=== PATIENT | male | born 1995 | race Caucasian/White ===

== ENCOUNTER 2019-12-10 12:42 | Emergency (ER) | payer SELFPAY ==
[~2019-12-10] VITALS: Ht 185 cm; Wt 106.0 kg
[2019-12-10] MEDS ORDERED: fentaNYL INJECTION 100 MCG/2 ML AMP IVP PRN (13:00)
[2019-12-10] MEDS ORDERED: diphenhydrAMINE 50 MG/ML INJ (BENADRYL) IVP ONE (13:00)
[2019-12-10] MEDS ORDERED: NS IV 1000 ML 1,000 ML IV SCH (13:00)
--- NOTE | 2019-12-10 13:13 | ED Abdominal Pain ---
General Stated Complaint: LOWER ABD PAIN Source of Information: Patient Exam Limitations: No Limitations (MAUREEN TALLEY MED STUDENT) History of Present Illness Date Seen by Provider: Dec 10, 2019 Time Seen by Provider: 12:50 Initial Comments Mr. Dietrich is a 24 year old male who presents to the emergency department this morning with complaints of epigastric abdominal pain and vomiting. He was seen at a walk-in clinic and instructed to go to the ED. Jasson states he had an alcohol binge 2 days ago consisting of mostly liquor. He states he woke up the next morning with severe abdominal pain and nausea/vomiting. He states he improved and was able to sleep and eat/drink that evening. However, this morning the symptoms returned. Jasson describes the pain as a dull 3/10 at rest but with inhaling/vomiting it is a sharp 7/10 on the pain scale. He tried naproxen for the pain with no relief. He continues to have nausea. The pain is epigastric in location with no radiation. He denies recent sick contacts, diarrhea, chest pain, or fever. He admits to regular but not daily alcohol use. He also uses THC daily via a "dab pen", he has used THC for several years Timing/Duration: 1-2 Days Severity/Quality: Moderate Location: RUQ, Epigastric Radiation: No Radiation Modifying Factors: Worsens With Breathing, Worsens With Defecating, Worsens With Vomiting (MAUREEN TALLEY,LAKIA STUDENT) Allergies and Home Medications Allergies Coded Allergies: ziprasidone (Verified Allergy, Unknown, 12/10/19) Home Medications Prochlorperazine Maleate 10 Mg Tablet, 10 MG PO TID PRN for NAUSEA/VOMITING Prescribed by: JET BOLDEN on 12/10/19 1410 Patient Home Medication List Home Medication List Reviewed: Yes (MAUREEN TALLEY,LAKIA STUDENT) Review of Systems Review of Systems Constitutional: chills; No dizziness, No fever EENTM: No Symptoms Reported Respiratory: Shortness of Air (with pain) Cardiovascular: No Symptoms Reported Gastrointestinal: Abdominal Pain; Denies Diarrhea; Nausea, Vomiting Genitourinary: No Symptoms Reported Skin: no symptoms reported (MAUREEN TALLEY,LAKIA STUDENT) Physical Exam Vital Signs Vital Signs - First Documented 12/10/19 12:46 Temp 37.1 Pulse 66 Resp 20 B/P (MAP) 143/95 (111) Pulse Ox 99 O2 Delivery Room Air (JET BOLDEN APRN) Vital Signs Capillary Refill : (MAUREEN TALLEY,MED STUDENT) Height/Weight/BMI Height: '" Weight: lbs. oz. kg; BMI Method: General Appearance: WD/WN, mild distress HEENT: PERRL/EOMI Respiratory: chest non-tender, lungs clear, normal breath sounds, no respira tory distress, no accessory muscle use Cardiovascular: regular rate, rhythm, no murmur Peripheral Pulses: 2+ Radial Pulses (R), 2+ Radial Pulses (L) Gastrointestinal: normal bowel sounds, soft, no organomegaly; No guarding, No rebound; tenderness (epigastric and RUQ) Neurologic/Psychiatric: alert, normal mood/affect, oriented x 3 Skin: normal color, warm/dry (MAUREEN TALLEY,MED STUDENT) Progress/Results/Core Measures Results/Orders Lab Results Laboratory Tests Test 12/10/19 12:48 Range/Units White Blood Count 11.6 H 4.3-11.0 10^3/uL Red Blood Count 5.41 4.35-5.85 10^6/uL Hemoglobin 16.7 13.3-17.7 G/DL Hematocrit 49 40-54 % Mean Corpuscular Volume 91 80-99 FL Mean Corpuscular Hemoglobin 31 25-34 PG Mean Corpuscular Hemoglobin Concent 34 32-36 G/DL Red Cell Distribution Width 13.0 10.0-14.5 % Platelet Count 213 130-400 10^3/uL Mean Platelet Volume 10.5 H 7.4-10.4 FL Neutrophils (%) (Auto) 81 H 42-75 % Lymphocytes (%) (Auto) 10 L 12-44 % Monocytes (%) (Auto) 7 0-12 % Eosinophils (%) (Auto) 2 0-10 % Basophils (%) (Auto) 0 0-10 % Neutrophils # (Auto) 9.4 H 1.8-7.8 X 10^3 Lymphocytes # (Auto) 1.2 1.0-4.0 X 10^3 Monocytes # (Auto) 0.8 0.0-1.0 X 10^3 Eosinophils # (Auto) 0.2 0.0-0.3 10^3/uL Basophils # (Auto) 0.0 0.0-0.1 10^3/uL Prothrombin Time 12.4 12.2-14.7 SEC INR Comment 0.9 0.8-1.4 Sodium Level 141 135-145 MMOL/L Potassium Level 3.8 3.6-5.0 MMOL/L Chloride Level 105 98-107 MMOL/L Carbon Dioxide Level 26 21-32 MMOL/L Anion Gap 10 5-14 MMOL/L Blood Urea Nitrogen 17 7-18 MG/DL Creatinine 0.84 0.60-1.30 MG/DL Estimat Glomerular Filtration Rate > 60 BUN/Creatinine Ratio 20 Glucose Level 105 70-105 MG/DL Calcium Level 9.5 8.5-10.1 MG/DL Corrected Calcium 9.2 8.5-10.1 MG/DL Total Bilirubin 1.3 H 0.1-1.0 MG/DL Aspartate Amino Transf (AST/SGOT) 24 5-34 U/L Alanine Aminotransferase (ALT/SGPT) 32 0-55 U/L Alkaline Phosphatase 31 L 40-136 U/L Total Protein 7.7 6.4-8.2 GM/DL Albumin 4.4 3.2-4.5 GM/DL Lipase 20 8-78 U/L (JET BOLDEN APRN) My Orders Orders - JET BOLDEN APRN Ekg Tracing (12/10/19 12:54) Comprehensive Metabolic Panel (12/10/19 12:54) Lipase (12/10/19 12:54) Protime With Inr (12/10/19 12:54) Ed Iv/Invasive Line Start (12/10/19 12:54) Diphenhydramine Injection (Benadryl Inje (12/10/19 13:00) Fentanyl Injection (Sublimaze Injection (12/10/19 13:00) Ns Iv 1000 Ml (Sodium Chloride 0.9%) (12/10/19 13:00) Cbc With Automated Diff (12/10/19 13:15) Haloperidol Injection (Haldol Injectio (12/10/19 13:45) Us Gallbladder 809[address] (12/10/19 14:10) Ondansetron Injection (Zofran Injectio (12/10/19 15:00) (JET BOLDEN APRN) Vital Signs/I&O 12/10/19 12/10/19 12:46 15:01 Temp 37.1 Pulse 66 75 Resp 20 16 B/P (MAP) 143/95 (111) 141/99 Pulse Ox 99 98 O2 Delivery Room Air Room Air (JET BOLDEN APRN) Departure Impression Primary Impression: Nausea and vomiting Qualified Codes: R11.2 - Nausea with vomiting, unspecified Disposition: HOME, SELF-CARE Condition: Improved Departure-Patient Inst. Scripts Prochlorperazine Maleate (Compazine) 10 Mg Tablet 10 MG PO TID PRN for NAUSEA/VOMITING, #14 TAB Prov: JET BOLDEN APRN 12/10/19 MAUREEN TALLEY,MED STUDENT Dec 10, 2019 13:13 JET BOLDEN APRN Dec 14, 2019 11:10
--- NOTE | 2019-12-10 13:15 | ED General ---
General Stated Complaint: LOWER ABD PAIN Source of Information: Patient Exam Limitations: No Limitations History of Present Illness Date Seen by Provider: Dec 10, 2019 Time Seen by Provider: 12:55 Initial Comments To ER with epigastric abdominal pain as well as nausea and vomiting for 2-3 days. This began after drinking a lot of alcohol the night before 3 days ago. He presented to [facility] walk-in clinic and was advised he might have pancreatitis. He decided to come to the emergency room. He does smoke dabs of marijuana (concentrated THC in wax paste) daily. Timing/Duration: 1-2 Days Severity: Moderate Associated Systoms: Nausea/Vomiting Allergies and Home Medications Allergies Coded Allergies: ziprasidone (Verified Allergy, Unknown, 12/10/19) Patient Home Medication List Home Medication List Reviewed: Yes Review of Systems Review of Systems Constitutional: see HPI EENTM: see HPI Respiratory: no symptoms reported Cardiovascular: no symptoms reported Genitourinary: no symptoms reported Musculoskeletal: no symptoms reported Skin: no symptoms reported Psychiatric/Neurological: No Symptoms Reported Hematologic/Lymphatic: No Symptoms Reported Immunological/Allergic: no symptoms reported Physical Exam Vital Signs Vital Signs - First Documented 12/10/19 12:46 Temp 37.1 Pulse 66 Resp 20 B/P (MAP) 143/95 (111) Pulse Ox 99 O2 Delivery Room Air Capillary Refill : Height, Weight, BMI Height: '" Weight: lbs. oz. kg; BMI Method: General Appearance: Other (diaphoretic) Eyes: Bilateral Eye Normal Inspection, Bilateral Eye PERRL Neck: Full Range of Motion, Normal Inspection Respiratory: No Accessory Muscle Use, No Respiratory Distress Cardiovascular: Regular Rate, Rhythm, Normal Peripheral Pulses Gastrointestinal: Normal Bowel Sounds, Soft, Tenderness Extremity: Normal Capillary Refill, Normal Inspection Neurologic/Psychiatric: Alert, Oriented x3 Skin: Normal Color, Warm/Dry Progress/Results/Core Measures Suspected Sepsis SIRS Temperature: Pulse: Respiratory Rate: Laboratory Tests 12/10/19 12:48: White Blood Count 11.6H Blood Pressure / Mean: Laboratory Tests 12/10/19 12:48: Creatinine 0.84, INR Comment 0.9, Platelet Count 213, Total Bilirubin 1.3H Results/Orders Lab Results Laboratory Tests Test 12/10/19 12:48 Range/Units White Blood Count 11.6 H 4.3-11.0 10^3/uL Red Blood Count 5.41 4.35-5.85 10^6/uL Hemoglobin 16.7 13.3-17.7 G/DL Hematocrit 49 40-54 % Mean Corpuscular Volume 91 80-99 FL Mean Corpuscular Hemoglobin 31 25-34 PG Mean Corpuscular Hemoglobin Concent 34 32-36 G/DL Red Cell Distribution Width 13.0 10.0-14.5 % Platelet Count 213 130-400 10^3/uL Mean Platelet Volume 10.5 H 7.4-10.4 FL Neutrophils (%) (Auto) 81 H 42-75 % Lymphocytes (%) (Auto) 10 L 12-44 % Monocytes (%) (Auto) 7 0-12 % Eosinophils (%) (Auto) 2 0-10 % Basophils (%) (Auto) 0 0-10 % Neutrophils # (Auto) 9.4 H 1.8-7.8 X 10^3 Lymphocytes # (Auto) 1.2 1.0-4.0 X 10^3 Monocytes # (Auto) 0.8 0.0-1.0 X 10^3 Eosinophils # (Auto) 0.2 0.0-0.3 10^3/uL Basophils # (Auto) 0.0 0.0-0.1 10^3/uL Prothrombin Time 12.4 12.2-14.7 SEC INR Comment 0.9 0.8-1.4 Sodium Level 141 135-145 MMOL/L Potassium Level 3.8 3.6-5.0 MMOL/L Chloride Level 105 98-107 MMOL/L Carbon Dioxide Level 26 21-32 MMOL/L Anion Gap 10 5-14 MMOL/L Blood Urea Nitrogen 17 7-18 MG/DL Creatinine 0.84 0.60-1.30 MG/DL Estimat Glomerular Filtration Rate > 60 BUN/Creatinine Ratio 20 Glucose Level 105 70-105 MG/DL Calcium Level 9.5 8.5-10.1 MG/DL Corrected Calcium 9.2 8.5-10.1 MG/DL Total Bilirubin 1.3 H 0.1-1.0 MG/DL Aspartate Amino Transf (AST/SGOT) 24 5-34 U/L Alanine Aminotransferase (ALT/SGPT) 32 0-55 U/L Alkaline Phosphatase 31 L 40-136 U/L Total Protein 7.7 6.4-8.2 GM/DL Albumin 4.4 3.2-4.5 GM/DL Lipase 20 8-78 U/L My Orders Orders - BOLDENJET APRN Ekg Tracing (12/10/19 12:54) Comprehensive Metabolic Panel (12/10/19 12:54) Lipase (12/10/19 12:54) Ua Culture If Indicated (12/10/19 12:54) Drug Screen Stat (Urine) (12/10/19 12:54) Protime With Inr (12/10/19 12:54) Ed Iv/Invasive Line Start (12/10/19 12:54) Diphenhydramine Injection (Benadryl Inje (12/10/19 13:00) Fentanyl Injection (Sublimaze Injection (12/10/19 13:00) Ns Iv 1000 Ml (Sodium Chloride 0.9%) (12/10/19 13:00) Cbc With Automated Diff (12/10/19 13:15) Haloperidol Injection (Haldol Injectio (12/10/19 13:45) Medications Given in ED Current Medications Medications Dose Ordered Sig/Saritha Route Start Time Stop Time Status Last Admin Dose Admin Diphenhydramine HCl 25 mg ONCE ONCE IVP 12/10/19 13:00 12/10/19 13:01 DC 12/10/19 13:03 25 MG Fentanyl Citrate 50 mcg ONCE PRN IVP 12/10/19 13:00 12/10/19 13:03 50 MCG Haloperidol Lactate 5 mg ONCE ONCE IV 12/10/19 13:45 12/10/19 13:46 DC 12/10/19 13:40 5 MG Vital Signs/I&O 12/10/19 12:46 Temp 37.1 Pulse 66 Resp 20 B/P (MAP) 143/95 (111) Pulse Ox 99 O2 Delivery Room Air Capillary Refill : Departure Impression Primary Impression: Epigastric abdominal pain Additional Impressions: Nausea and vomiting Cannabinoid hyperemesis syndrome Disposition: 01 HOME, SELF-CARE Condition: Improved Departure-Patient Inst. Decision time for Depature: 14:07 Patient Instructions: No Instuctions Given Add. Discharge Instructions: Your labs are unremarkable, it is certainly possible that the marijuana is contributing to this abdominal pain and nausea and vomiting. Unfortunately, if that is the case it tends to be a recurrent problem with repeated emergency room visits for abdominal pain nausea and vomiting. The treatment for this is to cease marijuana use, hot showers with the water hitting your abdomen can also be helpful. Take the nausea medication as directed. Follow-up with your doctor this week for further evaluation and recheck. Scripts Prochlorperazine Maleate (Compazine) 10 Mg Tablet 10 MG PO TID PRN for NAUSEA/VOMITING, #14 TAB Prov: JET BOLDEN APRN 12/10/19 JET BOLDEN APRN Dec 10, 2019 13:14
[2019-12-10 13:21] LABS: INR 0.9 (0.8-1.4); PROTHROMBIN TIME PATIENT 12.4 SEC (12.2-14.7)
[2019-12-10 13:22] LABS: BASOPHILS % (AUTO) 0 % (0-10); EOSINOPHILS # (AUTO) 0.2 10^3/uL (0.0-0.3); EOSINOPHILS % (AUTO) 2 % (0-10); HEMATOCRIT 49 % (40-54); HEMOGLOBIN 16.7 G/DL (13.3-17.7); LYMPHOCYTES # (AUTO) 1.2 X 10^3 (1.0-4.0); LYMPHOCYTES % (AUTO) 10 % (12-44); MEAN CORPUSCULAR HEMOGLOBIN 31 PG (25-34); MEAN CORPUSCULAR HGB CONC 34 G/DL (32-36); MEAN CORPUSCULAR VOLUME 91 FL (80-99); MEAN PLATELET VOLUME 10.5 FL (7.4-10.4); MONOCYTES # (AUTO) 0.8 X 10^3 (0.0-1.0); MONOCYTES % (AUTO) 7 % (0-12); NEUTROPHILS # (AUTO) 9.4 X 10^3 (1.8-7.8); NEUTROPHILS % (AUTO) 81 % (42-75); PLATELET COUNT 213 10^3/uL (130-400); WHITE BLOOD COUNT 11.6 10^3/uL (4.3-11.0)
[2019-12-10 13:24] LABS: ALBUMIN 4.4 GM/DL (3.2-4.5)
[2019-12-10 13:25] LABS: CHLORIDE 105 MMOL/L (98-107); POTASSIUM 3.8 MMOL/L (3.6-5.0); SODIUM 141 MMOL/L (135-145)
[2019-12-10 13:26] LABS: CALCIUM 9.5 MG/DL (8.5-10.1)
[2019-12-10 13:27] LABS: GLUCOSE 105 MG/DL (70-105); TOTAL PROTEIN 7.7 GM/DL (6.4-8.2)
[2019-12-10 13:28] LABS: CARBON DIOXIDE 26 MMOL/L (21-32)
[2019-12-10 13:29] LABS: BILIRUBIN,TOTAL 1.3 MG/DL (0.1-1.0)
[2019-12-10 13:30] LABS: ALKALINE PHOSPHATASE 31 U/L (40-136)
[2019-12-10 13:31] LABS: CREATININE SERUM 0.84 MG/DL (0.60-1.30); GFR ESTIMATED > 60
[2019-12-10 13:32] LABS: BUN/CREATININE RATIO 20
[2019-12-10 13:33] LABS: ALANINE AMINOTRANSFERASE 32 U/L (0-55)
[2019-12-10 13:34] LABS: LIPASE 20 U/L (8-78)
[2019-12-10] MEDS ORDERED: HALOPERIDOL 5 MG/ML (HALDOL) VIAL IV ONE (13:45)
--- NOTE | 2019-12-10 13:54 | NUR ---
Patient sleeping. No signs of distress present.
[2019-12-10] MEDS ORDERED: PROC-1 PO (14:10)
--- OUTSIDE RECORDS SUMMARY | 2019-12-10 14:47 | XMS REPORT | Continuity of Care Document ---
Demographics Preferred Language Unknown Marital Status Unknown Tenriism Affiliation Unknown Race Unknown Ethnic Group Unknown Author Organization Unknown Address Unknown Phone Unavailable Allergies There is no data. Medications There is no data. Problems There is no data. Procedures There is no data. Results Test Result Range Complete blood count (CBC) with automate d white blood cell (WBC) differential - 12/10/19 12:48 Blood leukocytes automated count (number/volume) 11.6 10*3/uL 4.3-11.0 Blood erythrocytes automated count (number/volume) 5.41 10*6/uL 4.35-5.85 Venous blood hemoglobin measurement (mass/volume) 16.7 g/dL 13.3-17.7 Blood hematocrit (volume fraction) 49 % 40-54 Automated erythrocyte mean corpuscular volume 91 [ foz_us] 80-99 Automated erythrocyte mean corpuscular h emoglobin (mass per erythrocyte) 31 pg 25-34 Automated erythrocyte mean corpuscular h emoglobin concentration measurement (mass/volume) 34 g/dL 32-36 Automated erythrocyte distribution width ratio 13. 0 % 10.0- 14.5 Automated blood platelet count (count/volume) 213 10*3/uL 130-400 Automated blood platelet mean volume measurement 10.5 [foz_us] 7.4-10.4 Automated blood neutrophils/100 leukocytes 81 % 42-75 Automated blood lymphocytes/100 leukocytes 10 % 12-44 Blood monocytes/100 leukocytes 7 % 0-12 Automated blood eosinophils/100 leukocytes 2 % 0-10 Automated blood basophils/100 leukocytes 0 % 0-10 Blood neutrophils automated count (number/volume) 9.4 10*3 1.8-7.8 Blood lymphocytes automated count (number/volume) 1.2 10*3 1.0-4.0 Blood monocytes automated count (number/volume) 0. 8 10*3 0.0-1.0 Automated eosinophil count 0.2 10*3/uL 0 .0-0.3 Automated blood basophil count (count/volume) 0.0 10*3/uL 0.0-0.1 PT panel in platelet poor plasma by coag ulation assay - 12/10/19 12:48 Prothrombin time (PT) in platelet poor plasma by coagu lation assay 12.4 s 12.2-14.7 INR in platelet poor plasma or blood by coagulation as say 0.9 0.8-1.4 Comprehensive metabolic panel - 12/10/19 12:48 Serum or plasma sodium measurement (moles/volume) 141 mmol/L 135-145 Serum or plasma potassium measurement (moles/volume) 3.8 mmol/L 3.6-5.0 Serum or plasma chloride measurement (moles/volume) 105 mmol/L 98-107 Carbon dioxide 26 mmol/L 21-32 Serum or plasma anion gap determination (moles/volume) 10 mmol/L 5-14 Serum or plasma urea nitrogen measurement (mass/volume ) 17 mg/dL 7-18 Serum or plasma creatinine measurement (mass/volume) 0.84 mg/dL 0.60-1.30 Serum or plasma urea nitrogen/creatinine mass ratio 20 NRG Serum or plasma creatinine measurement w ith calculation of estimated glomerular filtration rate > NRG Serum or plasma glucose measurement (mass/volume) 105 mg/dL 70-105 Serum or plasma calcium measurement (mass/volume) 9.5 mg/dL 8.5-10.1 Serum or plasma total bilirubin measurement (mass/volu me) 1.3 mg/dL 0.1-1.0 Serum or plasma alkaline phosphatase deyanira surement (enzymatic activity/volume) 31 U/L 40-136 Serum or plasma aspartate aminotransfera se measurement (enzymatic activity/volume) 24 U/L 5-34 Serum or plasma alanine aminotransferase measurement (enzymatic activity/volume) 32 U/L 0-55 Serum or plasma protein measurement (mass/volume) 7.7 g/dL 6.4-8.2 Serum or plasma albumin measurement (mass/volume) 4.4 g/dL 3.2-4.5 CALCIUM CORRECTED 9.2 mg/dL 8.5-10.1 Lipase - 12/10/19 12:48 Lipase 20 U/L 8-78 Encounters ACCT No. Visit Date/Time Discharge Status Pt. Type Provider Facility Loc./Unit Complaint [id number] 12/10/2019 13:22:00 Document Registration
--- NOTE | 2019-12-10 14:54 | Diagnostic Imaging Report ---
PROCEDURE: US Gallbladder. TECHNIQUE: Multiple real-time grayscale images were obtained over the right upper quadrant in various projections. INDICATION: Pain. FINDINGS: The gallbladder appears normal. No stone or sludge. Biliary ducts are nondilated. The visualized portions of the pancreas are normal. The aorta is nonaneurysmal. The cava is unremarkable. The unobstructed right kidney is normal in size, cortical thickness, and echotexture. No ascites. Portal vein is patent and shows a normal hepatopetal direction of flow. IMPRESSION: Normal right upper quadrant ultrasound. Dictated by: Dictated on workstation # [id number]
[2019-12-10] MEDS ORDERED: ONDANSETRON 4 MG/2 ML (SDV) Z0FRAN IVP ONE (15:00)
[2019-12-10 15:01] VITALS: BP 141/99
== END 2019-12-10 15:01 | disposition home or self-care (01) ==
LOC: ER 12:44
DX: R10.13 Epigastric pain (principal); R11.2 Nausea with vomiting, unspecified; F12.90 Cannabis use, unspecified, uncomplicated
CPT/HCPCS: 36415; 76705; 80053; 83690; 85025; 85610; 93005; 96361; 96374; 96375

== ENCOUNTER 2021-03-14 15:25 | Emergency (ER) | payer OTHER ==
[~2021-03-14] VITALS: Ht 180 cm; Wt 108.9 kg
[~2021-03-14 15:25] MED LIST: PROC-1 PO
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
[2021-03-14] MEDS ORDERED: LIDOCAINE 2% VISCOUS 15 ML UDC PO ONE (15:45)
[2021-03-14] MEDS ORDERED: DROPERIDOL 5 MG/2 ML (INAPSINE) ED ONLY! IV ONE (15:45)
[2021-03-14] MEDS ORDERED: ANTACID SUSP 30 ML UDC (MYLANTA) PO ONE (15:45)
[2021-03-14] MEDS ORDERED: LACTATED RINGERS 1,000 ML IV SCH (15:45)
[2021-03-14 16:00] LABS: BASOPHILS % (AUTO) 0 % (0-10); EOSINOPHILS % (AUTO) 1 % (0-10); HEMATOCRIT 49 % (40-54); HEMOGLOBIN 17.4 g/dL (13.3-17.7); LYMPHOCYTES # (AUTO) 1.1 10^3/uL (1.0-4.0); LYMPHOCYTES % (AUTO) 17 % (12-44); MEAN CORPUSCULAR HEMOGLOBIN 31 pg (25-34); MEAN CORPUSCULAR HGB CONC 36 g/dL (32-36); MEAN CORPUSCULAR VOLUME 86 fL (80-99); MONOCYTES # (AUTO) 0.6 10^3/uL (0.0-1.0); MONOCYTES % (AUTO) 9 % (0-12); NEUTROPHILS # (AUTO) 4.7 10^3/uL (1.8-7.8); NEUTROPHILS % (AUTO) 73 % (42-75); PLATELET COUNT 241 10^3/uL (130-400); WHITE BLOOD COUNT 6.4 10^3/uL (4.3-11.0)
[2021-03-14] MEDS ORDERED: HOLD METFORMIN - RECEIVED CONTRAST 20 ML VIAL IV SCH (16:00)
[2021-03-14] MEDS ORDERED: NS 100 ML (IVPB) BAG IV ONE (16:00)
[2021-03-14] MEDS ORDERED: IOHEXOL 350 MG/ML 100 ML (OMNIPAQUE 350) VIAL IV ONE (16:00)
[2021-03-14 16:01] LABS: ALBUMIN 4.6 GM/DL (3.2-4.5); CHLORIDE 98 MMOL/L (98-107); POTASSIUM 3.8 MMOL/L (3.6-5.0); SODIUM 135 MMOL/L (135-145)
[2021-03-14 16:03] LABS: CALCIUM 9.7 MG/DL (8.5-10.1)
[2021-03-14 16:04] LABS: GLUCOSE 100 MG/DL (70-105); TOTAL PROTEIN 7.9 GM/DL (6.4-8.2)
[2021-03-14 16:05] LABS: CARBON DIOXIDE 23 MMOL/L (21-32)
[2021-03-14 16:06] LABS: BILIRUBIN,TOTAL 1.3 MG/DL (0.1-1.0)
[2021-03-14 16:07] LABS: ALKALINE PHOSPHATASE 38 U/L (40-136); CREATININE SERUM 0.85 MG/DL (0.60-1.30); GFR ESTIMATED 110
[2021-03-14 16:09] LABS: BUN/CREATININE RATIO 12
[2021-03-14 16:10] LABS: ALANINE AMINOTRANSFERASE 64 U/L (0-55)
[2021-03-14 16:11] LABS: LIPASE 32 U/L (8-78)
[2021-03-14] MEDS ORDERED: PROC-1 PO (16:25)
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
--- NOTE | 2021-03-14 16:31 | Diagnostic Imaging Report ---
PROCEDURE: CT abdomen and pelvis with contrast. TECHNIQUE: Multiple contiguous axial images were obtained through the abdomen and pelvis after administration of intravenous contrast. Auto Exposure Controls were utilized during the CT exam to meet ALARA standards for radiation dose reduction. All CT scans use one or more of the following dose optimizing techniques: automated exposure control, MA and/or KvP adjustment based on patient size and exam type or iterative reconstruction. INDICATION: Altercation, abdominal pain. COMPARISON: None available. FINDINGS: The visualized lung bases are clear. The liver, spleen, adrenal glands and pancreas are unremarkable. The gallbladder is unremarkable. The kidneys and bilateral ureters are unremarkable. No aneurysmal dilatation of the abdominal aorta. Tiny fat-containing umbilical hernia. The urinary bladder is unremarkable. Mild mural thickening of the colon diffusely, though the colon is not well distended. What is felt to relate to the appendix is unremarkable. No bowel obstruction or pneumatosis. No significant adenopathy, free air or free fluid within the abdomen or pelvis. No acute osseous abnormality. IMPRESSION: 1. Mild mural thickening of the colon diffusely, related to poor distention versus mild colitis. No evidence of bowel obstruction. 2. Otherwise, essentially unremarkable examination. Dictated by: Dictated on workstation # [id number]
[2021-03-14] MEDS ORDERED: PANT40TA2 PO (16:44)
[2021-03-14 16:49] VITALS: BP 144/98
== END 2021-03-14 16:49 | disposition home or self-care (01) ==
LOC: EDUNIT# 15:25 → ER 15:28
DX: R11.2 Nausea with vomiting, unspecified (principal)
CPT/HCPCS: 70450; 74177; 80053; 83690; 85025; 99284; G0480; 36415; 80320